=== PATIENT | female | born 1995 | race Caucasian/White ===

== ENCOUNTER → 2021-05-17 | Outpatient (CLI) | payer OTHER ==
[2021-05-17 14:11] LABS: HEMATOCRIT 37.9 % (36.0-47.0); MEAN CORPUSCULAR HEMOGLOBIN 31.3 pg (27.0-33.0); MEAN CORPUSCULAR HGB CONC 34.3 g/dl (32.0-36.5); MEAN CORPUSCULAR VOLUME 91.1 fl (80.0-96.0); PLATELET COUNT, AUTOMATED 189 10^3/uL (150-450); RED BLOOD COUNT 4.16 10^6/uL (4.00-5.40); WHITE BLOOD COUNT 9.8 10^3/uL (4.0-10.0)
[2021-05-17 15:23] LABS: HIV 1&2 SCREEN CENTAUR NEGATIVE (NEGATIVE)
[2021-05-17 15:49] LABS: GC DNA AMPLIFICATION NEGATIVE (NEGATIVE)
== END ==
LOC: M PLALAB 09:27
PROVIDERS: ATTEND Obstetrics & Gynecology
DX: Z34.81 Encounter for supervision of other normal pregnancy, first trimester (principal); Z3A.00 Weeks of gestation of pregnancy not specified

== ENCOUNTER → 2021-07-25 | Outpatient (CLI) | payer OTHER ==
--- NOTE | 2021-07-26 14:13 | REP ---
INDICATION: ANATOMY. COMPARISON: None. TECHNIQUE: Real-time sonographic evaluation of the gravid uterus performed. FINDINGS: Estimated gestational age is19 weeks 6 days, EDC 12/13/2021. Today's measurements indicate appropriate growth. Presentation: Variable Placenta posterior, grade 0, without evidence of placenta previa. heart rate is recorded at 165 beats per minute. Amniotic fluid is subjectively normal. Closed cervical length is measured at 3.2 cm. Biometry chart: BPD: 45 mm, 19 weeks 5 days, 46th percentile. HC: 164 mm, 19 weeks 1 days, 29th percentile AC: 145 mm, 19 weeks 6 days, 49th percentile Femur length: 31 mm, 19 weeks 5 days, 46th percentile HC to AC ratio: 1.13, normal range 1.06-1.25. Estimated weight: 309g, 38th percentile. anatomy: Cranium: Grossly normal Lateral Ventricles/Choroid Plexus: Grossly normal Posterior Fossa/Cerebellum: Grossly normal Nose/lips/profile: Grossly normal Four chamber heart: Grossly normal Right ventricular outflow tract: Grossly normal Left ventricular outflow tract: Grossly normal Left-sided stomach: Grossly normal Kidneys: Grossly normal Bladder: Grossly normal Cord Insertion: Grossly normal 3 vessel cord: Grossly normal Spine: Grossly normal IMPRESSION: Viable single intrauterine gestation as above. <Electronically signed by Carlos Mix > 07/26/21 [id number]
== END ==
LOC: M WHC 12:42
PROVIDERS: ATTEND Advanced Practice Midwife
DX: Z34.92 Encounter for supervision of normal pregnancy, unspecified, second trimester (principal); Z3A.19 19 weeks gestation of pregnancy

== ENCOUNTER → 2021-09-07 | Outpatient (CLI) | payer OTHER ==
[2021-09-07 18:07] LABS: HEMATOCRIT 32.2 % (36.0-47.0); HEMOGLOBIN 10.6 g/dl (12.0-15.5); MEAN CORPUSCULAR HEMOGLOBIN 32.2 pg (27.0-33.0); MEAN CORPUSCULAR HGB CONC 32.9 g/dl (32.0-36.5); MEAN CORPUSCULAR VOLUME 97.9 fl (80.0-96.0); PLATELET COUNT, AUTOMATED 189 10^3/uL (150-450); RED BLOOD COUNT 3.29 10^6/uL (4.00-5.40); WHITE BLOOD COUNT 14.3 10^3/uL (4.0-10.0)
== END ==
LOC: M PLALAB 13:33
PROVIDERS: ATTEND Obstetrics & Gynecology
DX: Z34.82 Encounter for supervision of other normal pregnancy, second trimester (principal)
CPT/HCPCS: 36415; 82950; 85027; 86850; 86900; 86901; G0463

== ENCOUNTER → 2021-11-11 | Outpatient (CLI) | payer OTHER | LOC: M WHC 07:49 | PROVIDERS: ATTEND Obstetrics & Gynecology | DX: O26.843 Uterine size-date discrepancy, third trimester (principal); Z3A.35 35 weeks gestation of pregnancy ==

== ENCOUNTER → 2021-11-16 | Outpatient (REF) | payer OTHER ==
[~2021-11-16] MED LIST: ACET325C5 PO; PRENTAB9 PO
== END ==
LOC: M SFHCWAGY 13:06
PROVIDERS: ATTEND Obstetrics & Gynecology
DX: Z34.93 Encounter for supervision of normal pregnancy, unspecified, third trimester (principal); Z3A.00 Weeks of gestation of pregnancy not specified
CPT/HCPCS: 87081; G0463

== ENCOUNTER 2021-11-26 19:05 | Outpatient (CLI) | payer OTHER ==
[~2021-11-26] VITALS: Ht 165.1 cm; Wt 85.0 kg
[2021-11-26] MEDS ORDERED: PRENTAB9 PO (19:17)
[2021-11-26] MEDS ORDERED: ACET325C5 PO (19:17)
[2021-11-26] MEDS ORDERED: HOME MED LIST COMPLETE! XX SCH (19:20)
[2021-11-26 19:23] VITALS: BP 120/64
[2021-11-26 20:13] LABS: AMORPHOUS SEDIMENT SMALL (NEGATIVE); APPEARANCE, URINE HAZY (CLEAR); BACTERIA, URINE AUTO NEGATIVE (NEGATIVE); BILIRUBIN, URINE AUTO 1+ (NEGATIVE); BLOOD, URINE BLOOD 2+ (NEGATIVE); COLOR, URINE AMBER (YELLOW); GLUCOSE, URINE (UA) AUTO NEGATIVE (NEGATIVE); KETONE, URINE AUTO TRACE mg/dL (NEGATIVE); LEUKOCYTE ESTERASE, URINE AUTO TRACE (NEGATIVE); MUCUS, URINE SMALL (NEGATIVE); NITRITE, URINE AUTO NEGATIVE (NEGATIVE); PROTEIN, URINE AUTO 2+ mg/dL (NEGATIVE); RBC, URINE AUTO 32 /HPF (0-3); SPECIFIC GRAVITY URINE AUTO 1.034 (1.002-1.035); SQUAMOUS EPITHELIAL CELL UR AU 2 /HPF (0-6); WBC, URINE AUTO 8 /HPF (0-3)
[2021-11-26 20:34] VITALS: BP 130/70
== END 2021-11-26 20:30 | disposition home or self-care (01) ==
LOC: M LDO 19:05
PROVIDERS: ATTEND Obstetrics & Gynecology
DX: O60.03 Preterm labor without delivery, third trimester (principal); Z3A.37 37 weeks gestation of pregnancy
CPT/HCPCS: 59025; 81001; 87086; G0378; G0463

== ENCOUNTER 2021-12-14 12:53 | Outpatient (CLI) | payer OTHER ==
[~2021-12-14] VITALS: Ht 165.1 cm; Wt 85.5 kg
[2021-12-14 13:12] VITALS: BP 131/75
[2021-12-14 15:49] VITALS: BP 135/82
== END 2021-12-14 16:12 | disposition home or self-care (01) ==
LOC: M LDO 12:53
PROVIDERS: ATTEND Advanced Practice Midwife
DX: O26.03 Excessive weight gain in pregnancy, third trimester (principal); Z3A.40 40 weeks gestation of pregnancy
CPT/HCPCS: 59025; G0463

== ENCOUNTER 2021-12-17 11:29 | Inpatient (IN) | payer OTHER ==
[~2021-12-17] VITALS: Ht 165.1 cm; Wt 86.4 kg
[2021-12-17] VITALS (23 sets, daily range): BP systolic 103–141; BP diastolic 50–71
[2021-12-17] MEDS ORDERED: HOME MED LIST COMPLETE! XX SCH (11:45)
[2021-12-17] MEDS ORDERED: METHYLERGONOVINE MALEATE 0.2 MG/ML VIAL (J2210) IM PRN (12:20)
[2021-12-17] MEDS ORDERED: LR 1,000 ML IV SCH (12:20)
[2021-12-17] MEDS ORDERED: TRANEXAMIC ACID INJection 1,000 MG in NS 100 ML IV PRN (12:20)
[2021-12-17] MEDS ORDERED: LIDOCAINE 1% MDV 20ML VIAL INFIL PRN (12:20)
[2021-12-17] MEDS ORDERED: OXYTOCIN DRIP 30 UNITS in IV 1 EA IV PRN ×4 (12:20)
[2021-12-17] MEDS ORDERED: OXYTOCIN DRIP 30 UNITS in IV 1 EA IV SCH ×2 (12:20→17:05)
[2021-12-17 13:03] LABS: HEMATOCRIT 32.9 % (36.0-47.0); HEMOGLOBIN 11.3 g/dl (12.0-15.5); MEAN CORPUSCULAR HEMOGLOBIN 32.9 pg (27.0-33.0); MEAN CORPUSCULAR HGB CONC 34.3 g/dl (32.0-36.5); MEAN CORPUSCULAR VOLUME 95.9 fl (80.0-96.0); PLATELET COUNT, AUTOMATED 205 10^3/uL (150-450); RED BLOOD COUNT 3.43 10^6/uL (4.00-5.40); WHITE BLOOD COUNT 14.1 10^3/uL (4.0-10.0)
[2021-12-17] MEDS ORDERED: FENTANYL 2MCG/ML ROPIVACAINE 0.2% IN 0.9% NACL 100ML IVBAG As Ordered ONE (15:27)
[2021-12-17] MEDS ORDERED: ePHEDrine SULFATE 25 MG/5 ML(5MG/ML) SYRINGE IV PRN (16:00)
[2021-12-17] MEDS ORDERED: REFRIGERATOR IV KEYS XX PRN (16:00)
[2021-12-17] MEDS ORDERED: LACTATED RINGER'S 1000 ML IV PRN (16:00)
[2021-12-17] MEDS ORDERED: EPIDURAL/PCA KEYS XX PRN (16:00)
[2021-12-17] MEDS ORDERED: FENTANYL/ROPIVACAINE/NACL BAG 100 ML EPIDURAL SCH (16:00)
[2021-12-17] MEDS ORDERED: NALOXONE INJ 0.4MG/1ML VIAL (J2310 PER 1MG) IV PRN (16:00)
[2021-12-17] MEDS ORDERED: EPIDURAL COMMENT XX SCH (16:00)
[2021-12-17] MEDS ORDERED: ONDANSETRON 4MG/2ML VIAL IV PRN (16:00)
[2021-12-17] MEDS ORDERED: diphenhydrAMINE 50MG/ML VIAL (J1200) IV PRN (16:00)
[2021-12-17] MEDS ORDERED: DOCUSATE SODIUM 100MG CAPSULE PO PRN (17:05)
[2021-12-17] MEDS ORDERED: MEASLES,MUMPS,RUBELLA VACCINE INJ (MMR-II) (90707) SC SCH (17:05)
[2021-12-17] MEDS ORDERED: IBUPROFEN 800 MG TAB PO PRN (17:05)
[2021-12-17] MEDS ORDERED: METHYLERGONOVINE MALEATE 0.2 MG TAB PO PRN (17:05)
[2021-12-17] MEDS ORDERED: MOM 30ML SUSPENSION UDC PO PRN (17:05)
[2021-12-17] MEDS ORDERED: ANUSOL HC CREAM 30GM TOP PRN (17:05)
[2021-12-17] MEDS ORDERED: RHOGAM 300 MCG (1500 IU) INJ (J2790) IM SCH (17:05)
[2021-12-17] MEDS ORDERED: DIBUCAINE 1% OINTMENT 30GM TOP PRN (17:05)
[2021-12-17] MEDS ORDERED: ACETAMINOPHEN TAB 650MG DOSE (2X325MG) PO PRN (17:05)
[2021-12-17] MEDS ORDERED: ACETAMINOPHEN 500 MG TAB PO PRN (17:05)
[2021-12-17] MEDS ORDERED: IBUPROFEN 600MG TAB PO PRN (17:05)
[2021-12-18 06:00] VITALS: BP 116/56
[2021-12-18] MEDS ORDERED: PRENATAL VITAMINS CHEWABLE TABLET PO SCH (09:00)
== END 2021-12-18 17:21 | disposition home or self-care (01) | DRG 807 ==
LOC: M LDI 11:29 → M OBS 19:35
PROVIDERS: ADMIT Obstetrics & Gynecology; ATTEND Obstetrics & Gynecology
PROC: 10E0XZZ Delivery of Products of Conception, External Approach (ICD-10-PCS; principal; 2021-12-17)
PROC: 3E033VJ Introduction of Other Hormone into Peripheral Vein, Percutaneous Approach (ICD-10-PCS; 2021-12-17)
DX: O48.0 Post-term pregnancy (principal); Z37.0 Single live birth; Z3A.40 40 weeks gestation of pregnancy; Z91.030 Bee allergy status; O69.82X0 Labor and delivery complicated by other cord entanglement, without compression, not applicable or unspecified

== ENCOUNTER → 2022-05-31 | Outpatient (REF) | payer OTHER | LOC: M PLALAB 16:36 | PROVIDERS: ATTEND Obstetrics & Gynecology | DX: Z12.4 Encounter for screening for malignant neoplasm of cervix (principal) ==